=== PATIENT | female | born 1950 | race Caucasian/White ===

== ENCOUNTER 2023-12-16 08:47 | Day surgery (SDC) | payer MEDICARE, OTHER ==
[~2023-12-16 08:47] MED LIST: Sodium Chloride 0.9% 10 ML Syringe FLUSH SCH
[2023-12-16] MEDS: Lactated Ringers 1,000 ML IV SCH (09:10)
[2023-12-16] MEDS ORDERED: Propofol 200 MG/20 ML SDV ONE (09:27)
[2023-12-16 11:06] LABS: CREATININE 0.6 mg/dL (0.55-1.02); EST CRCL DRUG DOSING (CG) 59.98 mL/min
[2023-12-16] MEDS ORDERED: Sodium Chloride 0.9% 10 ML Syringe FLUSH PRN (11:36)
[2023-12-16] MEDS: Iopamidol 612 MG/ML 100 ML Bottle IVPUSH ONE (11:47)
[2023-12-16] MEDS: Sodium Chloride 0.9% 10 ML Syringe FLUSH PRN (11:47)
== END 2023-12-16 11:25 | disposition home or self-care (01) ==
LOC: JD.SDS 08:47
PROVIDERS: ATTEND Surgery
DX: C20 Malignant neoplasm of rectum (principal); K29.51 Unspecified chronic gastritis with bleeding; K44.9 Diaphragmatic hernia without obstruction or gangrene; K22.2 Esophageal obstruction; K64.3 Fourth degree hemorrhoids; D50.9 Iron deficiency anemia, unspecified; R63.4 Abnormal weight loss
CPT/HCPCS: 36415; 43239; 45380; 74177; 82378; 82565; J2704; J3490; J7120; Q9967; 00813; 88305; 88341; 88342; 99100